=== PATIENT | female | born 1960 | race Caucasian/White ===

== ENCOUNTER 2019-03-29 06:40 | Day surgery (SDC) | payer OTHER ==
[2019-03-29] VITALS (8 sets, daily range): BP systolic 97–137; BP diastolic 54–74
[~2019-03-29] VITALS: Ht 170.2 cm; Wt 113.9 kg
[2019-03-29] MEDS ORDERED: normal saline 1000ml 1,000 ML IV PRN (07:00)
[2019-03-29] MEDS ORDERED: cefazolin/dext.iso 2gm/100ml 100 ML IV ONE (07:00)
[2019-03-29] MEDS ORDERED: fentaNYL/PF 50MCG/1 ML 2ML syringe IV PRN (07:25)
[2019-03-29] MEDS ORDERED: LIDOcaine 1%/PF 5ML 10 MG/ML VIAL SQ ONE (07:25)
[2019-03-29] MEDS ORDERED: midazolam 2 mg/2 ml injection IV PRN (07:25)
[2019-03-29] MEDS ORDERED: OMEP20TA5 PO (07:28)
[2019-03-29] MEDS ORDERED: RALO60TA55 PO (07:28)
[2019-03-29] MEDS ORDERED: TURMERIC (07:28)
[2019-03-29] MEDS ORDERED: METF-438 PO (07:28)
[2019-03-29] MEDS ORDERED: CALCIUM (07:28)
[2019-03-29] MEDS ORDERED: VITAMIN C (07:28)
[2019-03-29] MEDS ORDERED: PIOG15TA8 PO (07:28)
[2019-03-29] MEDS ORDERED: ATOR20TA PO (07:28)
[2019-03-29] MEDS ORDERED: CANA300T PO (07:28)
[2019-03-29] MEDS ORDERED: VOLTAREN PO (07:28)
[2019-03-29] MEDS ORDERED: LIRA0.6P SQ (07:28)
[2019-03-29] MEDS ORDERED: VITAMIN D (07:28)
[2019-03-29] MEDS ORDERED: OMEP-297 PO (07:28)
[2019-03-29] MEDS ORDERED: ASPI-611 PO (07:28)
[2019-03-29] MEDS ORDERED: MULT-1085 PO (07:28)
[2019-03-29] MEDS ORDERED: FLAX SEED OIL (07:28)
[2019-03-29 08:02] LABS: BASOPHILS % (AUTO) 0.5 % (0-1); EOSINOPHILS # (AUTO) 0.2 X10'3 (0-0.9); EOSINOPHILS % (AUTO) 5.4 % (0-6); HEMATOCRIT 37.9 % (35.0-45.0); HEMOGLOBIN 12.2 g/dl (12.0-16.0); LYMPHOCYTES # (AUTO) 0.9 X10'3 (1.1-4.8); LYMPHOCYTES % (AUTO) 30.4 % (21-51); MEAN CORPUSCULAR HEMOGLOBIN 26.7 PG (27.0-31.0); MEAN CORPUSCULAR HGB CONC 32.1 g/dL (33.0-36.5); MEAN CORPUSCULAR VOLUME 83.2 FL (78-98); MEAN PLATELET VOLUME 7.3 FL (7.4-10.4); MONOCYTES # (AUTO) 0.3 X10'3 (0-0.9); MONOCYTES % (AUTO) 9.2 % (2-12); NEUTROPHILS # (AUTO) 1.7 X10'3 (1.8-7.7); NEUTROPHILS % (AUTO) 54.5 % (42-75); PLATELET COUNT 98 X10'3 (140-440); RED BLOOD COUNT 4.56 X10'6 (4.20-5.60); RED CELL DISTRIBUTION WIDTH 17.4 % (11.5-14.5); WHITE BLOOD COUNT 3.1 X10'3 (4.5-11.0)
[2019-03-29 08:09] LABS: ALBUMIN 3.1 G/DL (3.4-5.0); ANION GAP 9 (8-16); BLOOD UREA NITROGEN 16 MG/DL (7-18); BUN/CREATININE RATIO 24.6 (6.6-38.0); CALCIUM 8.8 MG/DL (8.5-10.1); CHLORIDE 106 MMOL/L (99-107); CREATININE 0.65 MG/DL (0.40-0.90); GLUCOSE 175 MG/DL (70-104); POTASSIUM 3.5 MMOL/L (3.5-5.1); SODIUM 141 MMOL/L (135-145); TOTAL CARBON DIOXIDE 26.5 MMOL/L (24-32); eGFR > 90 ML/MIN
[2019-03-29] MEDS ORDERED: midazolam 2 mg/2 ml injection ONE ×3 (08:17→09:03)
[2019-03-29] MEDS ORDERED: LIDOcaine 1%/PF 5ML 10 MG/ML VIAL ONE (08:17)
[2019-03-29] MEDS ORDERED: diphenhydrAMINE 50 mg/ml inj ONE (08:17)
[2019-03-29] MEDS ORDERED: fentaNYL/PF 50MCG/1 ML 2ML syringe ONE ×3 (08:17→09:03)
[2019-03-29] MEDS ORDERED: iohexol 300 MG/1 ML 50ml polymer ONE (08:18)
[2019-03-29] MEDS ORDERED: normal saline 1000ml 1,000 ML IV SCH (09:44)
[2019-03-29] MEDS ORDERED: morphine 4 MG/ML inj SYRINge IV PRN (09:45)
[2019-03-29] MEDS ORDERED: HYDROcodone/acetaminophen 5mg/325mg tablet PO PRN (09:45)
--- NOTE | 2019-03-29 10:30 | NUR ---
CORRECTION: PT WAS NOT EXPERIENCING PAIN. NO PAIN AT THIS TIME.
--- NOTE | 2019-03-29 12:36 | NUR ---
Pt ambulated floor, ambulated to bathroom, voided. pt dressed self. Pt denies pain. Denies SOB, denies cp. Pt neuro check documented as ordered. pt site stable no dressing in place. pt sitting at the side of the bed, feet dangling. pt is refusing to rest in bed. states, "I'm ready to get outta here". Will continue to monitor until ordered discharge time.
== END 2019-03-29 12:55 | disposition home or self-care (01) ==
LOC: SSTAY O 06:40
PROVIDERS: ATTEND Radiology Diagnostic Radiology
DX: M48.56XA Collapsed vertebra, not elsewhere classified, lumbar region, initial encounter for fracture (principal); M54.5 Low back pain; M46.86 Other specified inflammatory spondylopathies, lumbar region; E11.9 Type 2 diabetes mellitus without complications; E78.5 Hyperlipidemia, unspecified; Z88.1 Allergy status to other antibiotic agents; Z88.2 Allergy status to sulfonamides; Z98.890 Other specified postprocedural states; Z79.84 Long term (current) use of oral hypoglycemic drugs; Z79.899 Other long term (current) drug therapy
CPT/HCPCS: 22514; 36415; 80048; 82948; 85025; 85610; 99152; 99153; C1713; J1200; J2250; J3010; J7030; Q9967

== ENCOUNTER 2022-11-01 11:27 | Emergency (ER) | payer OTHER ==
[~2022-11-01] VITALS: Ht 170.2 cm; Wt 79.4 kg
[~2022-11-01 11:27] MED LIST: ASPI-611 PO; ATOR20TA PO; CALCIUM; CANA300T PO; FLAX SEED OIL; LIRA0.6P SQ; METF-438 PO; MULT-1085 PO; OMEP20CA15 PO; OMEP20TA43 PO; PIOG15TA8 PO; RALO60TA55 PO; TURMERIC; VITAMIN C; VITAMIN D; VOLTAREN PO
[2022-11-01 13:00] VITALS: TEMP 97.9
[2022-11-01] MEDS ORDERED: dexamethasone sod phosphate 10mg/ml inj IM STA (13:24)
[2022-11-01] MEDS ORDERED: DEC4T PO ×2 (14:23)
[2022-11-01 14:36] VITALS: BP 143/70; PULSE 103; RESP 16; O2SAT 98
[2022-11-02] MEDS ORDERED: OMEP20CA16 PO (17:35)
[2022-11-02] MEDS ORDERED: SEMA1PEN3 SQ (17:35)
[2022-11-02] MEDS ORDERED: THYR30TA21 PO (17:35)
[2022-11-02] MEDS ORDERED: ESTR42.510 VG (17:35)
[2022-11-02] MEDS ORDERED: TRAM50TA2 PO (17:35)
[2022-11-02] MEDS ORDERED: ATOR20TA66 PO (17:35)
[2022-11-02] MEDS ORDERED: PROG100C11 PO (17:35)
== END 2022-11-01 14:45 | disposition home or self-care (01) ==
LOC: ER 11:28
DX: M54.59 Other low back pain (principal); R53.1 Weakness; R33.9 Retention of urine, unspecified; Z88.0 Allergy status to penicillin; Z79.82 Long term (current) use of aspirin; Z79.1 Long term (current) use of non-steroidal anti-inflammatories (NSAID); Z79.2 Long term (current) use of antibiotics
CPT/HCPCS: 72100; 93005; 96372; 99283; J1100

== ENCOUNTER 2022-11-01 22:24 | Inpatient (IN) | payer OTHER ==
[~2022-11-01] VITALS: Ht 170.2 cm; Wt 90.9 kg
[~2022-11-01 22:24] MED LIST changes: +DEC4T PO
[2022-11-01 23:21] LABS: BASOPHILS % (AUTO) 0.5 % (0-1); EOSINOPHILS # (AUTO) 0.1 X10'3 (0-0.9); EOSINOPHILS % (AUTO) 0.8 % (0-6); HEMATOCRIT 51.4 % (35.0-45.0); LYMPHOCYTES # (AUTO) 3.4 X10'3 (1.1-4.8); LYMPHOCYTES % (AUTO) 37.8 % (21-51); MEAN CORPUSCULAR HEMOGLOBIN 33.9 PG (27.0-31.0); MEAN CORPUSCULAR HGB CONC 33.1 g/dL (33.0-36.5); MEAN CORPUSCULAR VOLUME 102.4 FL (78-98); MEAN PLATELET VOLUME 7.3 FL (7.4-10.4); MONOCYTES # (AUTO) 0.1 X10'3 (0-0.9); MONOCYTES % (AUTO) 1.4 % (2-12); NEUTROPHILS # (AUTO) 5.3 X10'3 (1.8-7.7); NEUTROPHILS % (AUTO) 59.5 % (42-75); PLATELET COUNT 192 X10'3 (140-440); RED BLOOD COUNT 5.02 X10'6 (4.20-5.60); WHITE BLOOD COUNT 8.9 X10'3 (4.5-11.0)
[2022-11-01 23:30] LABS: ALANINE AMINOTRANSFERASE 29 U/L (12-78); ALBUMIN 3.7 G/DL (3.4-5.0); ALBUMIN/GLOBULIN RATIO 0.8 (1.1-1.5); ALKALINE PHOSPHATASE 79 IU/L (46-116); ASPARTATE AMINO TRANSFERASE 31 U/L (10-37); BILIRUBIN,TOTAL 0.7 MG/DL (0.1-1.0); BLOOD UREA NITROGEN 14 MG/DL (7-18); BUN/CREATININE RATIO 13.9 (10.0-20.0); CALCIUM 9.5 MG/DL (8.5-10.1); CHLORIDE 98 MMOL/L (99-107); CREATININE 1.01 MG/DL (0.40-0.90); GLUCOSE 219 MG/DL (70-104); POTASSIUM 3.8 MMOL/L (3.5-5.1); SODIUM 134 MMOL/L (135-145); TOTAL PROTEIN 8.4 G/DL (6.4-8.2); eGFR 56 ML/MIN
[2022-11-02] VITALS (30 sets, daily range): BP systolic 88–153; BP diastolic 41–83; PULSE 99–123; RESP 10–27; O2SAT 96–100
[2022-11-02 00:33] LABS: ANION GAP 31 (8-16)
[2022-11-02 00:35] LABS: TOTAL CARBON DIOXIDE < 5 MMOL/L (24-32)
[2022-11-02] MEDS ORDERED: CefTRIAXone 2gm/D5W 50ml BAG 50 ML IV ONE (00:45)
[2022-11-02] MEDS ORDERED: normal saline 1000ML IV soln IVB ONE (00:45)
[2022-11-02 00:57] LABS: ABG BASE EXCESS -28.3 mmol/L (-2.0-2.0); ABG HCO3 2.5 mmol/L (22.0-26.0); ABG OXYGEN SATURATION 97.8 % (94-97); ABG PO2 (T) 146.1 mmHg (75.0-100.0); ALLEN'S TEST POSITIVE; FCOHb 0.3 % (0.0-3.9); FMetHb 0.6 % (0.0-1.5); FO2Hb 96.9 % (94-97); TOTAL HEMOGLOBIN 17.7 G/dl (12.0-16.0)
[2022-11-02] MEDS ORDERED: Insulin Reg/NS 100units/100mL 100 ML IV ONE (01:00)
--- NOTE | 2022-11-02 01:26 | NUR ---
DR MORFIN MADE AWARE THAT PT IS THROWING FREQUENT PVCS AND BECOMING MORE SOMNOLENT. EKG PERFORMED. ORDERS FOR D5NS @200 ALONG WITH INSULIN DRIP AT 4 UNITS HR.
[2022-11-02] MEDS ORDERED: succinylcholine 20mg/ml inj IV ONE (01:52)
[2022-11-02] MEDS ORDERED: propofol 1000mg/100ml bottle 100 ML IV ONE ×2 (01:52→02:55)
[2022-11-02 02:11] LABS: CLARITY,URINE CLEAR (Clear); COLOR,URINE YELLOW (Yellow); GLUCOSE, URINE 500 mg/dl (Neg); KETONES,URINE >=80 mg/dl (Neg); LEUKOCYTE ESTERASE ,URINE NEGATIVE (Neg); NITRITES, URINE NEGATIVE (Neg); OCCULT BLOOD,URINE MODERATE (Neg); PH,URINE 5.5 (4.8-8.0); PROTEIN,URINE TRACE mg/dl (Neg); UROBILINOGEN,URINE 0.2 E.U/dL (0.2-1.0)
[2022-11-02 02:12] LABS: UA COLLECTION TYPE STRAIGHT CATH
[2022-11-02 02:17] LABS: MUCUS STRANDS FEW /LPF (Neg)
[2022-11-02 02:19] LABS: BACTERIA,URINE NONE SEEN /HPF (Neg); RBC,URINE 0-2 /HPF (0-2); SQUAMOUS EPITHELIAL CELL,UR FEW /LPF (FEW); WBC,URINE 0-4 /HPF (0-4)
[2022-11-02 02:20] LABS: AMORPHOUS URATES 1+
[2022-11-02 02:24] LABS: URINE AMPHETAMINE SCREEN NEGATIVE (Neg); URINE BARBITUATE SCREEN NEGATIVE (Neg); URINE BENZODIAZEPINES SCREEN NEGATIVE (Neg); URINE CANNABINOID SCREEN NEGATIVE (Neg); URINE COCAINE SCREEN NEGATIVE (Neg); URINE METHADONE SCREEN NEGATIVE (Neg); URINE OPIATE SCREEN NEGATIVE (Neg); URINE PHENCYCLIDINE SCREEN NEGATIVE (Neg)
[2022-11-02] MEDS ORDERED: etomidate 2mg/ml inj. IV STA (02:25)
[2022-11-02] MEDS ORDERED: succinylcholine 20mg/ml inj IV STA (02:25)
[2022-11-02] MEDS ORDERED: sodium bicarbonate (8.4%) 1 mEq/ml syringe IV ONE (02:55)
[2022-11-02] MEDS ORDERED: sodium bicarbonate (8.4%) 1 mEq/ml syringe ONE (02:56)
[2022-11-02] MEDS ORDERED: sodium phosphate inj. 15 MMOL in dextrose 5%-water 250 ML IV PRN (03:20)
[2022-11-02] MEDS ORDERED: ringers solution, lacted 1,000 ML IV ONE ×2 (03:20)
[2022-11-02] MEDS ORDERED: potassium Cl 20 mEq SR tablet PO PRN ×2 (03:20)
[2022-11-02] MEDS ORDERED: sodium bicarbonate (8.4%) inj. 50 MEQ in dextrose 5% water 500ml 250 ML IV PRN (03:20)
[2022-11-02] MEDS: SODIUM BICARB 150mEq/D5W 1L 1,000 ML IV SCH ×2 (03:20→10:00)
[2022-11-02] MEDS ORDERED: sodium bicarbonate (8.4%) inj. 100 MEQ in dextrose 5% water 500ml 500 ML IV PRN (03:20)
[2022-11-02] MEDS ORDERED: potassium Cl 40MEQ/1/2NS 520ml 520 ML IV PRN ×3 (03:20→07:30)
[2022-11-02] MEDS ORDERED: fentaNYL/PF 50MCG/1 ML 2ML syringe IV PRN (03:20)
[2022-11-02] MEDS ORDERED: sodium phosphate inj. 30 MMOL in dextrose 5%-water 250 ML IV PRN (03:20)
[2022-11-02] MEDS ORDERED: piperacillin/tazo 3.375gm/50ml 50 ML IV SCH (03:28)
[2022-11-02 03:39] LABS: ABG BASE EXCESS -29.6 mmol/L (-2.0-2.0); ABG HCO3 3.1 mmol/L (22.0-26.0); ABG OXYGEN SATURATION 98.4 % (94-97); ABG PO2 (T) 147.4 mmHg (75.0-100.0); ALLEN'S TEST Modified; FCOHb 0.3 % (0.0-3.9); FMetHb 0.7 % (0.0-1.5); FO2Hb 97.4 % (94-97); PATIENT TEMPERATURE 34.8; PEEP 5 cm H2O; RESPIRATORY RATE 20 b/min; TIDAL VOLUME 500 mL
[2022-11-02 05:19] LABS: ALBUMIN 2.8 G/DL (3.4-5.0); BLOOD UREA NITROGEN 14 MG/DL (7-18); BUN/CREATININE RATIO 17.3 (10.0-20.0); CALCIUM 8.4 MG/DL (8.5-10.1); CHLORIDE 104 MMOL/L (99-107); CREATININE 0.81 MG/DL (0.40-0.90); GLUCOSE 221 MG/DL (70-104); PHOSPHORUS 3.5 MG/DL (2.3-4.5); POTASSIUM 3.2 MMOL/L (3.5-5.1); SODIUM 135 MMOL/L (135-145); TRIGLYCERIDES 216 MG/DL (20-135); eGFR 72 ML/MIN
[2022-11-02 05:24] LABS: ANION GAP 26 (8-16)
--- NOTE | 2022-11-02 05:25 | NUR ---
Pt arrived to room 2015a intubated and on light sedation. Report was received from ED RN and questions were answered. The pt was transferred over to the CICU bed, placed on our monitor, and vent. Pt was turned and skin assessment done. Medications infusing through central line
[2022-11-02 05:29] LABS: TOTAL CARBON DIOXIDE < 5 MMOL/L (24-32)
[2022-11-02] MEDS: Insulin Reg/NS 100units/100mL 100 ML IV SCH ×2 (05:59→18:21)
[2022-11-02] MEDS: propofol 1000mg/100ml bottle 100 ML IV SCH ×2 (06:00→13:52)
--- NOTE | 2022-11-02 06:00 | NUR ---
Pt switched over to spontaneous with a peep of 5 pressure support of 10 on vent due to ventilator dyssynchrony and stacking breaths. The pt is maintaining a respiratory rate of 15 with a tidal volume [id number] and min ventilation of 25-28. There is a repeat ABG ordered for 0700
[2022-11-02 06:11] LABS: APPEARANCE,CSF CLEAR; CSF SUPERNATANT COLOR COLORLESS
[2022-11-02 06:12] LABS: CSF RBC 2 /CU MM (0); CSF VOLUME 6 ML; CSF WBC CT 1 /CU MM (0-5); TUBE# COUNTED 4
[2022-11-02 06:14] LABS: APPEARANCE,CSF CLEAR; CSF SUPERNATANT COLOR COLORLESS; CSF VOLUME 6 ML
[2022-11-02 06:17] LABS: CSF RBC 3 /CU MM (0); CSF WBC CT 3 /CU MM (0-5); TUBE# COUNTED 1
[2022-11-02 06:31] LABS: APTT 28 SECONDS (22-32)
[2022-11-02 06:37] LABS: GLUCOSE,CSF 164 MG/DL (40-75); TOTAL PROTEIN,CSF 58 MG/DL (15-45)
--- NOTE | 2022-11-02 07:07 | NUR ---
Problems reprioritized. Patient report given, questions answered & plan of care reviewed with Ger WSET.
[2022-11-02 07:16] LABS: ABG BASE EXCESS -22.9 mmol/L (-2.0-2.0); ABG HCO3 4.4 mmol/L (22.0-26.0); ABG OXYGEN SATURATION 99.1 % (94-97); ABG PCO2 (T) 13.6 mmHg (32.0-45.0); ABG PO2 (T) 174.5 mmHg (75.0-100.0); ALLEN'S TEST POSITIVE; FCOHb 0.3 % (0.0-3.9); FMetHb 0.4 % (0.0-1.5); FO2Hb 98.4 % (94-97); PATIENT TEMPERATURE 35.5
[2022-11-02] MEDS ORDERED: magnesium 2GM in 50ml NS 50 ML IV PRN (07:30)
[2022-11-02] MEDS ORDERED: magnesium 4gm in 100ml NS 100 ML IV PRN (07:30)
[2022-11-02] MEDS ORDERED: magnesium Cl slow-release 64mg tablet PO PRN (07:30)
[2022-11-02] MEDS ORDERED: potassium Cl 40MEQ/270ML bag 270 ML IV PRN (07:30)
[2022-11-02 07:35] LABS: PLATELET COUNT 150 X10'3 (140-440)
[2022-11-02] MEDS: heparin, porcine 5000 units/ml vial SQ SCH ×3 (07:35→23:58)
[2022-11-02] MEDS: pantoprazole 40mg IV 40 MG in normal saline 100ml IV soln 100 ML IV SCH (07:35)
[2022-11-02] MEDS: piperacillin/tazo 3.375gm/50ml 50 ML IV SCH ×3 (07:35→23:57)
[2022-11-02] MEDS: K and/or MAG REPLACEMENT MC SCH ×2 (08:00→22:31)
[2022-11-02 08:44] LABS: BASOPHILS % (AUTO) 0.3 % (0-1); EOSINOPHILS % (AUTO) 0.3 % (0-6); HEMATOCRIT 44.2 % (35.0-45.0); HEMOGLOBIN 14.6 g/dl (12.0-16.0); LYMPHOCYTES # (AUTO) 1.2 X10'3 (1.1-4.8); LYMPHOCYTES % (AUTO) 9.2 % (21-51); MEAN CORPUSCULAR HEMOGLOBIN 33.4 PG (27.0-31.0); MEAN CORPUSCULAR HGB CONC 33.2 g/dL (33.0-36.5); MEAN CORPUSCULAR VOLUME 100.7 FL (78-98); MEAN PLATELET VOLUME 7.1 FL (7.4-10.4); MONOCYTES # (AUTO) 1.2 X10'3 (0-0.9); MONOCYTES % (AUTO) 8.7 % (2-12); NEUTROPHILS % (AUTO) 81.5 % (42-75); PLATELET COUNT 157 X10'3 (140-440); RED BLOOD COUNT 4.39 X10'6 (4.20-5.60); WHITE BLOOD COUNT 13.5 X10'3 (4.5-11.0)
[2022-11-02 09:01] LABS: ALBUMIN 2.8 G/DL (3.4-5.0); ANION GAP 25 (8-16); BLOOD UREA NITROGEN 13 MG/DL (7-18); BUN/CREATININE RATIO 19.1 (10.0-20.0); CALCIUM 8.4 MG/DL (8.5-10.1); CHLORIDE 104 MMOL/L (99-107); CREATININE 0.68 MG/DL (0.40-0.90); GLUCOSE 199 MG/DL (70-104); MAGNESIUM 2.3 MG/DL (1.5-2.4); PHOSPHORUS 1.8 MG/DL (2.3-4.5); POTASSIUM 3.1 MMOL/L (3.5-5.1); SODIUM 134 MMOL/L (135-145); eGFR 89 ML/MIN
[2022-11-02 09:08] LABS: TOTAL CARBON DIOXIDE < 5 MMOL/L (24-32)
[2022-11-02 09:25] LABS: HEMOGLOBIN A1C 7.1 % (4.5-6.2)
[2022-11-02] MEDS ORDERED: sodium phosphate inj. 15 MMOL in dextrose 5%-water 250 ML IV ONE (10:00)
[2022-11-02] MEDS ORDERED: potassium Cl 40MEQ/270ML bag 270 ML IV ONE ×2 (10:00→13:35)
[2022-11-02] MEDS: sodium bicarbonate 1meq/ml syr 150 ML in dextrose 5%-water 1,000 ML IV SCH ×2 (10:26→22:51)
[2022-11-02] MEDS ORDERED: FENTANYL-0.9 % NACL/PF 100 ML IV PRN (12:35)
[2022-11-02 13:21] LABS: ALBUMIN 2.6 G/DL (3.4-5.0); ANION GAP 25 (8-16); BLOOD UREA NITROGEN 13 MG/DL (7-18); BUN/CREATININE RATIO 16.9 (10.0-20.0); CHLORIDE 103 MMOL/L (99-107); CREATININE 0.77 MG/DL (0.40-0.90); GLUCOSE 161 MG/DL (70-104); MAGNESIUM 2.2 MG/DL (1.5-2.4); POTASSIUM 3.4 MMOL/L (3.5-5.1); SODIUM 136 MMOL/L (135-145); eGFR 77 ML/MIN
[2022-11-02 13:25] LABS: PHOSPHORUS 0.8 MG/DL (2.3-4.5); TOTAL CARBON DIOXIDE 7.9 MMOL/L (24-32)
--- NOTE | 2022-11-02 13:31 | NUR ---
Initial: Pt intubated admit DX acute respiratory failure, severe lactic and metabolic acidosis likely from [place] and possible metformin, DKA possibly from [place], and coffee ground emesis possibly gastritis from NSAIDs per EMR. Current Glu 163mg/dl down from 290mg/dl on admit; hx T2DM A1C 7.1% takes metformin BID at home per EMR DM ed not appropriate at this time. Pt remains NPO on insulin drip w/ OG in place MAP 66 this AM receiving Na-bicarb/D5W at 150ml/hr providing 612 kcals/day. TF recs below in case prolonged intubation. Pt receiving electrolyte replacement per protocol. Will monitor for further nutrition intervention needs this admit. Rec: 1. IF TF; Vital HP at 60ml/hr to provide 1440ml volume/day, 1440 kcals, 1204ml water, and 126g protein. 2. IF TF; additional water flush per field trainer serum Na 134mmol/L this AM 3. IF TF; PALB Q / 4. routine bowel care 5. daily scaled wt 6. advance diet as medically indicated to carb controlled upon extubation 7. DM diet ed deferred until more appropriate; A1C 7.1% Addendum: 11/02/22 at [address] Amended: Links added.
[2022-11-02 14:16] LABS: ABG BASE EXCESS -14.3 mmol/L (-2.0-2.0); ABG PCO2 (T) 14.8 mmHg (32.0-45.0); ABG PO2 (T) 163.7 mmHg (75.0-100.0); ALLEN'S TEST POSITIVE; FCOHb 0.3 % (0.0-3.9); FMetHb 0.3 % (0.0-1.5); FO2Hb 98.4 % (94-97); PATIENT TEMPERATURE 37.7; TOTAL HEMOGLOBIN 13.9 G/dl (12.0-16.0)
[2022-11-02] MEDS ORDERED: sodium bicarbonate (8.4%) inj. 150 MEQ in dextrose 5%-water 1,000 ML IV SCH (16:52)
[2022-11-02] MEDS ORDERED: TRAM50TA2 PO (17:35)
[2022-11-02] MEDS ORDERED: ATOR20TA66 PO (17:35)
[2022-11-02] MEDS ORDERED: OMEP20CA16 PO (17:35)
[2022-11-02] MEDS ORDERED: SEMA1PEN3 SQ (17:35)
[2022-11-02] MEDS ORDERED: THYR30TA21 PO (17:35)
[2022-11-02] MEDS ORDERED: PROG100C11 PO (17:35)
[2022-11-02] MEDS ORDERED: ESTR42.510 VG (17:35)
[2022-11-02 17:40] LABS: ALBUMIN 2.4 G/DL (3.4-5.0); ANION GAP 16 (8-16); BLOOD UREA NITROGEN 12 MG/DL (7-18); CALCIUM 7.8 MG/DL (8.5-10.1); CHLORIDE 106 MMOL/L (99-107); CREATININE 0.75 MG/DL (0.40-0.90); GLUCOSE 171 MG/DL (70-104); MAGNESIUM 2.2 MG/DL (1.5-2.4); POTASSIUM 3.7 MMOL/L (3.5-5.1); SODIUM 137 MMOL/L (135-145); eGFR 79 ML/MIN
[2022-11-02 17:42] LABS: PHOSPHORUS 1.1 MG/DL (2.3-4.5); TOTAL CARBON DIOXIDE 14.7 MMOL/L (24-32)
[2022-11-02] MEDS ORDERED: sodium phosphate inj. 30 MMOL in dextrose 5%-water 250 ML IV ONE (18:00)
--- NOTE | 2022-11-02 18:30 | NUR ---
Patient in room CICU 2013. I have received report from JENIFER WEST and had the opportunity to ask questions and assume patient care.
--- NOTE | 2022-11-02 18:36 | NUR ---
Shift Summary: Patient's pH slowly improving through the shift; Bicarb 3amps in D5W to run at 200ml/hour per MD non-titratable. Critical lactic acid through shift, improving. Per Dr. Conley, no fluid bolus orders, continue maintenance Bicarb drip. Anion Gap closing. Continue Insulin drip with orders to keep blood sugar 140-180. Critical phosph as low as 0.8; MD aware; replacement per protocol. Patient report given to Saray WEST.
[2022-11-02] MEDS: NORepinephrine 8mg/ 250ml NS 250 ML IV PRN (22:51)
[2022-11-02 23:39] LABS: ALBUMIN 2.5 G/DL (3.4-5.0); ANION GAP 15 (8-16); BLOOD UREA NITROGEN 11 MG/DL (7-18); BUN/CREATININE RATIO 15.5 (10.0-20.0); CALCIUM 7.5 MG/DL (8.5-10.1); CHLORIDE 104 MMOL/L (99-107); CREATININE 0.71 MG/DL (0.40-0.90); GLUCOSE 164 MG/DL (70-104); MAGNESIUM 2.2 MG/DL (1.5-2.4); PHOSPHORUS 1.9 MG/DL (2.3-4.5); SODIUM 139 MMOL/L (135-145); TOTAL CARBON DIOXIDE 19.9 MMOL/L (24-32); eGFR 84 ML/MIN
[2022-11-02 23:46] LABS: POTASSIUM 2.7 MMOL/L (3.5-5.1)
[2022-11-02] MEDS ORDERED: POTASSIUM BICARB 20meq eff tab 20 MEQ TABLET.EFF PO SCH (23:50)
[2022-11-02] MEDS: Neutra Phos packet PO PRN (23:57)
[2022-11-03] VITALS (31 sets, daily range): BP systolic 91–108; BP diastolic 32–50; PULSE 107–129; RESP 10–22; O2SAT 93–98
[2022-11-03] MEDS: propofol 1000mg/100ml bottle 100 ML IV SCH (03:40)
[2022-11-03] MEDS ORDERED: sodium bicarbonate (8.4%) 1 mEq/ml syringe ONE (03:49)
[2022-11-03] MEDS: sodium bicarbonate 1meq/ml syr 150 ML in dextrose 5%-water 1,000 ML IV SCH ×4 (04:05→21:20)
[2022-11-03 04:09] LABS: ABG BASE EXCESS 3.4 mmol/L (-2.0-2.0); ABG HCO3 24.6 mmol/L (22.0-26.0); ABG OXYGEN SATURATION 98.4 % (94-97); ABG PCO2 (T) 29.4 mmHg (32.0-45.0); ABG PO2 (T) 109.4 mmHg (75.0-100.0); ALLEN'S TEST Modified; FMetHb 0.2 % (0.0-1.5); FO2Hb 98.2 % (94-97); PATIENT TEMPERATURE 37.6; PEEP 5 cm H2O; TOTAL HEMOGLOBIN 15.1 G/dl (12.0-16.0)
[2022-11-03 05:42] LABS: ALBUMIN 2.5 G/DL (3.4-5.0); BLOOD UREA NITROGEN 8 MG/DL (7-18); BUN/CREATININE RATIO 12.7 (10.0-20.0); CALCIUM 7.5 MG/DL (8.5-10.1); CHLORIDE 102 MMOL/L (99-107); CREATININE 0.63 MG/DL (0.40-0.90); GLUCOSE 115 MG/DL (70-104); MAGNESIUM 2.2 MG/DL (1.5-2.4); PHOSPHORUS 1.9 MG/DL (2.3-4.5); POTASSIUM 3.8 MMOL/L (3.5-5.1); SODIUM 139 MMOL/L (135-145); TRIGLYCERIDES 138 MG/DL (20-135); eGFR > 90 ML/MIN
[2022-11-03 05:44] LABS: ANION GAP 13 (8-16); TOTAL CARBON DIOXIDE 24.5 MMOL/L (24-32)
[2022-11-03 05:49] LABS: BASOPHILS % (AUTO) 0.1 % (0-1); EOSINOPHILS # (AUTO) 0.1 X10'3 (0-0.9); EOSINOPHILS % (AUTO) 0.9 % (0-6); HEMATOCRIT 41.4 % (35.0-45.0); HEMOGLOBIN 14.5 g/dl (12.0-16.0); LYMPHOCYTES # (AUTO) 1.9 X10'3 (1.1-4.8); LYMPHOCYTES % (AUTO) 16.6 % (21-51); MEAN CORPUSCULAR HEMOGLOBIN 33.5 PG (27.0-31.0); MEAN CORPUSCULAR VOLUME 95.5 FL (78-98); MEAN PLATELET VOLUME 6.7 FL (7.4-10.4); MONOCYTES # (AUTO) 1.7 X10'3 (0-0.9); MONOCYTES % (AUTO) 14.5 % (2-12); NEUTROPHILS # (AUTO) 7.8 X10'3 (1.8-7.7); NEUTROPHILS % (AUTO) 67.9 % (42-75); PLATELET COUNT 122 X10'3 (140-440); RED BLOOD COUNT 4.34 X10'6 (4.20-5.60); WHITE BLOOD COUNT 11.5 X10'3 (4.5-11.0)
--- NOTE | 2022-11-03 06:00 | NUR ---
Patient in room CICU 2013. I have received report from Saray WEST and had the opportunity to ask questions and assume patient care.
[2022-11-03] MEDS ORDERED: dextrose 5%-1/2 normal saline 1,000 ML IV SCH (06:05)
--- NOTE | 2022-11-03 06:35 | NUR ---
Problems reprioritized. Patient report given, questions answered & plan of care reviewed with POORNIMA WEST.
[2022-11-03] MEDS: K and/or MAG REPLACEMENT MC SCH ×2 (07:32→18:48)
[2022-11-03] MEDS: heparin, porcine 5000 units/ml vial SQ SCH ×2 (07:42→15:30)
[2022-11-03] MEDS: piperacillin/tazo 3.375gm/50ml 50 ML IV SCH (07:42)
[2022-11-03] MEDS: pantoprazole 40mg IV 40 MG in normal saline 100ml IV soln 100 ML IV SCH (07:42)
[2022-11-03] MEDS: NORepinephrine 8mg/ 250ml NS 250 ML IV PRN (10:24)
[2022-11-03] MEDS ORDERED: dextrose 50%-water 50ml dispensing syringe IV PRN ×4 (11:45)
[2022-11-03] MEDS ORDERED: DEXTROSE 15 GM of carb/4 tabs (each vial/BOTTLE has 4 tablets) PO PRN ×4 (11:45)
[2022-11-03] MEDS ORDERED: insulin Lispro (HumaLOG) vial - multi-dose SQ SCH ×2 (11:45)
--- NOTE | 2022-11-03 11:45 | NUR ---
Informed Dr. Conley that med rec needs to be addressed. also ordered to DC insulin drip, DC D51/2NS, and carb controlled diet.
[2022-11-03 11:48] LABS: ALBUMIN 2.3 G/DL (3.4-5.0); ANION GAP 14 (8-16); BLOOD UREA NITROGEN 7 MG/DL (7-18); BUN/CREATININE RATIO 12.5 (10.0-20.0); CALCIUM 7.2 MG/DL (8.5-10.1); CHLORIDE 101 MMOL/L (99-107); CREATININE 0.56 MG/DL (0.40-0.90); GLUCOSE 194 MG/DL (70-104); MAGNESIUM 2.1 MG/DL (1.5-2.4); PHOSPHORUS 1.8 MG/DL (2.3-4.5); POTASSIUM 3.1 MMOL/L (3.5-5.1); SODIUM 139 MMOL/L (135-145); TOTAL CARBON DIOXIDE 23.9 MMOL/L (24-32); eGFR > 90 ML/MIN
[2022-11-03] MEDS: Neutra Phos packet PO PRN ×2 (11:59→21:23)
[2022-11-03] MEDS ORDERED: potassium Cl 40MEQ/270ML bag 270 ML IV ONE (12:00)
--- NOTE | 2022-11-03 12:36 | NUR ---
F/u 11/03: Pt extubated this AM per substance abuse counselor; remains NPO at this time. Will monitor for diet advancement and further nutrition intervention needs. Rec: 1. IF TF; Vital HP at 60ml/hr to provide 1440ml volume/day, 1440 kcals, 1204ml water, and 126g protein. 2. IF TF; additional water flush per substance abuse counselor serum Na 134mmol/L this AM 3. IF TF; PALB Q / 4. routine bowel care 5. daily scaled wt 6. advance diet as medically indicated to carb controlled as medically indicated 7. DM diet ed deferred until more appropriate; A1C 7.1% Addendum: 11/03/22 at [address] Amended: Links added.
[2022-11-03] MEDS: mineral oil/petrolatum ophthal oint EACHEYE SCH ×2 (14:00→18:48)
[2022-11-03 17:37] LABS: ALBUMIN 2.3 G/DL (3.4-5.0); ANION GAP 16 (8-16); BLOOD UREA NITROGEN 8 MG/DL (7-18); BUN/CREATININE RATIO 13.8 (10.0-20.0); CALCIUM 7.3 MG/DL (8.5-10.1); CHLORIDE 102 MMOL/L (99-107); CREATININE 0.58 MG/DL (0.40-0.90); GLUCOSE 164 MG/DL (70-104); MAGNESIUM 2.3 MG/DL (1.5-2.4); PHOSPHORUS 2.1 MG/DL (2.3-4.5); POTASSIUM 3.6 MMOL/L (3.5-5.1); SODIUM 140 MMOL/L (135-145); TOTAL CARBON DIOXIDE 21.8 MMOL/L (24-32); eGFR > 90 ML/MIN
--- NOTE | 2022-11-03 18:10 | NUR ---
Problems reprioritized. Patient report given, questions answered & plan of care reviewed with Austen WEST.
[2022-11-03] MEDS: Insulin Reg/NS 100units/100mL 100 ML IV SCH (18:48)
[2022-11-03] MEDS: insulin glargine (Lantus) pen - multi-dose SQ SCH (21:00)
[2022-11-03] MEDS ORDERED: insulin glargine (Lantus) pen - multi-dose SQ SCH (21:00)
[2022-11-04] VITALS (14 sets, daily range): BP systolic 100–121; BP diastolic 38–56; PULSE 106–118; RESP 16–21; TEMP 98–98.9; O2SAT 93–98
[2022-11-04] MEDS: heparin, porcine 5000 units/ml vial SQ SCH ×2 (00:11→08:00)
[2022-11-04] MEDS: mineral oil/petrolatum ophthal oint EACHEYE SCH ×4 (00:12→20:00)
[2022-11-04] MEDS: sodium bicarbonate 1meq/ml syr 150 ML in dextrose 5%-water 1,000 ML IV SCH ×2 (00:12→08:50)
[2022-11-04 03:29] LABS: ALBUMIN 2.3 G/DL (3.4-5.0); ANION GAP 21 (8-16); BASOPHILS % (AUTO) 0.3 % (0-1); BLOOD UREA NITROGEN 7 MG/DL (7-18); BUN/CREATININE RATIO 11.9 (10.0-20.0); CALCIUM 7.5 MG/DL (8.5-10.1); CHLORIDE 103 MMOL/L (99-107); CREATININE 0.59 MG/DL (0.40-0.90); EOSINOPHILS # (AUTO) 0.1 X10'3 (0-0.9); EOSINOPHILS % (AUTO) 0.8 % (0-6); GLUCOSE 147 MG/DL (70-104); HEMATOCRIT 40.2 % (35.0-45.0); HEMOGLOBIN 13.9 g/dl (12.0-16.0); LYMPHOCYTES # (AUTO) 1.6 X10'3 (1.1-4.8); LYMPHOCYTES % (AUTO) 21.6 % (21-51); MAGNESIUM 2.2 MG/DL (1.5-2.4); MEAN CORPUSCULAR HEMOGLOBIN 33.5 PG (27.0-31.0); MEAN CORPUSCULAR HGB CONC 34.6 g/dL (33.0-36.5); MEAN CORPUSCULAR VOLUME 96.9 FL (78-98); MEAN PLATELET VOLUME 7.1 FL (7.4-10.4); MONOCYTES # (AUTO) 1.2 X10'3 (0-0.9); MONOCYTES % (AUTO) 16.4 % (2-12); NEUTROPHILS # (AUTO) 4.5 X10'3 (1.8-7.7); NEUTROPHILS % (AUTO) 60.9 % (42-75); PHOSPHORUS 2.4 MG/DL (2.3-4.5); PLATELET COUNT 88 X10'3 (140-440); POTASSIUM 3.3 MMOL/L (3.5-5.1); RED BLOOD COUNT 4.15 X10'6 (4.20-5.60); RED CELL DISTRIBUTION WIDTH 15.6 % (11.5-14.5); SODIUM 141 MMOL/L (135-145); TOTAL CARBON DIOXIDE 17.3 MMOL/L (24-32); WHITE BLOOD COUNT 7.3 X10'3 (4.5-11.0); eGFR > 90 ML/MIN
[2022-11-04] MEDS ORDERED: etomidate 2mg/ml inj. ONE (08:00)
[2022-11-04] MEDS: K and/or MAG REPLACEMENT MC SCH ×2 (08:18→20:00)
[2022-11-04] MEDS ORDERED: potassium Cl 40MEQ/270ML bag 270 ML IV ONE (08:35)
[2022-11-04] MEDS: pantoprazole 40mg IV 40 MG in normal saline 100ml IV soln 100 ML IV SCH (08:36)
--- NOTE | 2022-11-04 08:41 | NUR ---
SQ Heparin is held by advisement of Pharmacist. Platelets count is 88.
[2022-11-04] MEDS: normal saline 1000ml 1,000 ML IV SCH ×2 (09:45→20:19)
[2022-11-04] MEDS ORDERED: acetaminophen 325mg tablet PO PRN (09:45)
[2022-11-04] MEDS: fondaparinux 2.5 MG/0.5 ML syringe SUBCUT SCH (12:44)
--- NOTE | 2022-11-04 14:11 | NUR ---
Arce Catheter is discontinued and first void is 300ml jaison urine. e.
--- NOTE | 2022-11-04 15:10 | NUR ---
Subclavian Central Line is DC'd, tip intact, no bleeding, no complication.
[2022-11-04] MEDS ORDERED: regadenoson 0.4mg/5ml syringe IV PRN (17:45)
[2022-11-04] MEDS ORDERED: aminophylline 250mg/10ml inj. IV PRN (17:45)
[2022-11-04] MEDS ORDERED: nitroGLYCERIN 0.4mg SUBLingual tab SL PRN (17:45)
[2022-11-04] MEDS ORDERED: metoprolol tartrate 1mg/ml inj IV PRN (17:45)
--- NOTE | 2022-11-04 18:00 | NUR ---
I have reviewed and agree with interventions, assessments, and documentation by Kofi Vicente LVN.
--- NOTE | 2022-11-04 18:40 | NUR ---
Patient in room ORTHO 4014. I have received report from Kofi ZARATE and had the opportunity to ask questions and assume patient care.
--- NOTE | 2022-11-04 18:41 | NUR ---
Problems reprioritized. Patient report given, questions answered & plan of care reviewed with BRETT Hansen.
[2022-11-04] MEDS ORDERED: non-formulary drug (Aspirin (Aspir 81) 1 TAB) PO SCH (20:00)
[2022-11-04] MEDS: insulin glargine (Lantus) pen - multi-dose SQ SCH (21:00)
[2022-11-05] VITALS (12 sets, daily range): BP systolic 98–125; BP diastolic 38–89; PULSE 105–117; RESP 16–24; TEMP 97.4–99.4; O2SAT 94–100
[2022-11-05] MEDS: mineral oil/petrolatum ophthal oint EACHEYE SCH ×3 (01:20→14:00)
[2022-11-05] MEDS: K and/or MAG REPLACEMENT MC SCH ×2 (01:20→08:00)
[2022-11-05] MEDS: normal saline 1000ml 1,000 ML IV SCH ×3 (05:45→20:21)
--- NOTE | 2022-11-05 07:13 | NUR ---
Patient in room ORTHO 4014B. I have received report from BRETT TERRY and had the opportunity to ask questions and assume patient care.
--- NOTE | 2022-11-05 10:00 | NUR ---
OK TO GIVE ARIXTRA PER DR, GIVEN DUE TO LOW PLATELETS
--- NOTE | 2022-11-05 10:08 | NUR ---
F/u 11/05: Pt is currently NPO for a stressed test per d/w RN but prior was on a vegetarian diet with average PO intake of 12.5% x 5 meals not meeting estimated needs. Recommend Ensure Enlive TIDWM to better meet estimated need; physician notified. Pt not appropriate for interview due to metabolic encephalopathy, documented midly confused, and Aox2 per EMR. Per physicians note, pt's husbands reports pt has a hx of alcohol abuse; recommend adding thiamin, folate, and MVI due to EtoH hx d/w RN. No BM yet with no bowel care available per EMR, discussed with RN. Will continue to monitor. Rec: 1. continue vegetarian diet 2. Ensure Enlive TIDWM; physician notified 3. consider adding thiamin, folate, and MVI due to Etoh hx 4. bowel care per physician 5. weekly wts Addendum: 11/05/22 at [address] Amended: Links added.
[2022-11-05] MEDS: thyroid, pork 30mg tablet PO SCH (11:03)
[2022-11-05] MEDS: atorvastatin 20mg tablet PO SCH (11:03)
[2022-11-05] MEDS: fondaparinux 2.5 MG/0.5 ML syringe SUBCUT SCH (11:03)
[2022-11-05] MEDS: pantoprazole 40mg IV 40 MG in normal saline 100ml IV soln 100 ML IV SCH (11:11)
--- NOTE | 2022-11-05 15:41 | NUR ---
Noted CHO controlled was added to patient's diet order however pt eating very poorly (average 12.5% x 5 meals) and BG range 86-112 mg/dL today. TC to RN with recommendation to discontinue CHO controlled restriction. Will continue to follow. Addendum: 11/05/22 at [address] Amended: Links added.
[2022-11-05] MEDS: lactose-reduced food (Ensure Enlive) - 237ml bottle PO SCH (18:00)
--- NOTE | 2022-11-05 18:30 | NUR ---
Patient in room ORTHO 4014. I have received report from Marcia Gann and had the opportunity to ask questions and assume patient care.
--- NOTE | 2022-11-05 19:56 | NUR ---
Problems reprioritized. Patient report given, questions answered & plan of care reviewed with BRETT TERRY.
--- NOTE | 2022-11-05 20:00 | NUR ---
Too sleepy to complete Nihss scale, meds given for MRI.
[2022-11-05] MEDS: thiamine 100mg tablet PO SCH (20:15)
[2022-11-05] MEDS: insulin glargine (Lantus) pen - multi-dose SQ SCH (21:00)
[2022-11-06] MEDS ORDERED: guaiFENesin 200mg/20mg codeine phos 10ml UD oral syrup PO PRN (01:05)
[2022-11-06 06:00] VITALS: BP 121/53; PULSE 104; RESP 16; TEMP 97.9; O2SAT 99
--- NOTE | 2022-11-06 07:00 | NUR ---
Gave report to Kyleigh WEST.
[2022-11-06] MEDS ORDERED: pantoprazole 40mg Tablet.DR PO SCH (07:30)
[2022-11-06 08:00] VITALS: RESP 14
[2022-11-06] MEDS: K and/or MAG REPLACEMENT MC SCH (08:00)
[2022-11-06] MEDS ORDERED: folic acid 1mg tablet PO SCH (08:00)
[2022-11-06] MEDS ORDERED: multivitamins, therapeutics tablet PO SCH (08:00)
[2022-11-06] MEDS: lactose-reduced food (Ensure Enlive) - 237ml bottle PO SCH (08:00)
[2022-11-06] MEDS: atorvastatin 20mg tablet PO SCH (09:56)
[2022-11-06] MEDS: thyroid, pork 30mg tablet PO SCH (09:56)
[2022-11-06] MEDS: thiamine 100mg tablet PO SCH (09:57)
[2022-11-06] MEDS: fondaparinux 2.5 MG/0.5 ML syringe SUBCUT SCH (09:58)
[2022-11-06 10:00] VITALS: BP 114/54; PULSE 112; RESP 18; TEMP 98.3; O2SAT 96
[2022-11-06] MEDS ORDERED: iohexol 350MG/ML 100ml bottle IV ONE (10:21)
== END 2022-11-06 15:49 | disposition home or self-care (01) | DRG 871 ==
LOC: ER 22:25 → ED HOLD 11-02 04:04 → CICU 2S 11-02 05:12 → ORTHO 4S 11-04 16:55
PROVIDERS: ADMIT Internal Medicine Critical Care Medicine; ATTEND Internal Medicine
PROC: 009U3ZX Drainage of Spinal Canal, Percutaneous Approach, Diagnostic (ICD-10-PCS; principal; 2022-11-02)
PROC: 02HV33Z Insertion of Infusion Device into Superior Vena Cava, Percutaneous Approach (ICD-10-PCS; 2022-11-02)
PROC: 0BH17EZ Insertion of Endotracheal Airway into Trachea, Via Natural or Artificial Opening (ICD-10-PCS; 2022-11-02)
PROC: 5A1945Z Respiratory Ventilation, 24-96 Consecutive Hours (ICD-10-PCS; 2022-11-02)
PROC: 4A02XM4 Measurement of Cardiac Total Activity, External Approach (ICD-10-PCS; 2022-11-05)
PROC: 3E073KZ Introduction of Other Diagnostic Substance into Coronary Artery, Percutaneous Approach (ICD-10-PCS; 2022-11-05)
PROC: B32T1ZZ Computerized Tomography (CT Scan) of Left Pulmonary Artery using Low Osmolar Contrast (ICD-10-PCS; 2022-11-05)
PROC: B3201ZZ Computerized Tomography (CT Scan) of Thoracic Aorta using Low Osmolar Contrast (ICD-10-PCS; 2022-11-05)
PROC: B32S1ZZ Computerized Tomography (CT Scan) of Right Pulmonary Artery using Low Osmolar Contrast (ICD-10-PCS; 2022-11-05)
DX: A41.9 Sepsis, unspecified organism (principal); E11.10 Type 2 diabetes mellitus with ketoacidosis without coma; J96.00 Acute respiratory failure, unspecified whether with hypoxia or hypercapnia; G93.41 Metabolic encephalopathy; I21.4 Non-ST elevation (NSTEMI) myocardial infarction; N17.9 Acute kidney failure, unspecified; G89.29 Other chronic pain; M54.50 Low back pain, unspecified; R65.20 Severe sepsis without septic shock; K76.0 Fatty (change of) liver, not elsewhere classified; E87.6 Hypokalemia; E83.39 Other disorders of phosphorus metabolism; Z79.82 Long term (current) use of aspirin; Z79.84 Long term (current) use of oral hypoglycemic drugs; Z79.899 Other long term (current) drug therapy
CPT/HCPCS: 36415; 36600; 70450; 71045; 71275; 72125; 72128; 72131; 74176; 78452; 80048; 80053; 80305; 80329; 81001; 82009; 82803; 82945; 82948; 83036; 83605; 83735; 83880; 84100; 84132; 84145; 84157; 84478; 84484; 85018; 85025; 85379; 85384; 85610; 85730; 87015; 87040; 87070; 87081; 89051; 93005; 93017; 94002; 94003; 94760; 94799; 97110; 97116; 97161; 97530; 99285; A4615; A6258; A6449; A9500; A9900; C1751; C9113; G0378; J0330; J0696; J1644; J1652; J1815; J2543; J2704; J2785; J3010; J3480; J3490; J7030; J7040; J7060; J7070; J7120; Q9967